=== PATIENT | female | born 1985 | race Hispanic/Latino ===

== ENCOUNTER 2024-05-08 06:15 | Emergency (ER) | payer OTHER ==
[~2024-05-08] VITALS: Ht 162.6 cm; Wt 108.9 kg
[~2024-05-08 06:15] MED LIST: IBUPROFEN600 MG PO
[2024-05-08] MEDS: ASPIRIN 325 MG TAB PO ONE (06:57)
[2024-05-08] MEDS: KETOROLAC TROMETHAMINE 30 MG/ML VIAL IV STA (08:04)
[2024-05-08] MEDS: ACETAMINOPHEN 325 MG TAB PO ONE (09:30)
[2024-05-08] MEDS ORDERED: IOPAMIDOL 370 MG/ML 100 ML INFUS..BTL INJ ONE (10:10)
[2024-05-08] MEDS: Morphine 4mg INJECTION 4 MG/ML INJ IV ONE (10:27)
[2024-05-08] MEDS: HALOPERIDOL LACTATE 5 MG/ML VIAL IV ONE (10:52)
[2024-05-08] MEDS ORDERED: DIPHENHYDRAMINE HCL INJ 50 MG/ML VIAL ONE (10:56)
[2024-05-08] MEDS: DIPHENHYDRAMINE HCL INJ 50 MG/ML VIAL IV ONE (11:04)
[2024-05-08 12:33] VITALS: PULSE 57; RESP 16; TEMP 98.2; O2SAT 98
== END 2024-05-08 12:33 | disposition home or self-care (01) ==
LOC: FSED 06:18
DX: R07.9 Chest pain, unspecified (principal); M25.512 Pain in left shoulder; R20.2 Paresthesia of skin; R20.0 Anesthesia of skin; F41.9 Anxiety disorder, unspecified; Z98.84 Bariatric surgery status
CPT/HCPCS: 71046; 71260; 80053; 80076; 80307; 81003; 83880; 84484; 85025; 85379; 93005; 96374; 96375; 99284; J1200; J1630; J1885; J2270; Q9967

== ENCOUNTER 2024-07-02 20:12 | Emergency (ER) | payer OTHER | END 2024-07-02 21:00 | disposition left against medical advice (07) | LOC: ER 20:17 | DX: R10.9 Unspecified abdominal pain (principal) ==

== ENCOUNTER 2024-09-05 09:51 | Emergency (ER) | payer OTHER ==
[~2024-09-05] VITALS: Ht 162.6 cm; Wt 95.3 kg
[2024-09-05 10:43] VITALS: PULSE 69; RESP 18; TEMP 99; O2SAT 100
[2024-09-05 12:11] LABS: CORONAVIRUS COVID-19 AG NEGATIVE (NEGATIVE); STREPTOCOCCUS GRP A ANTIGEN NEGATIVE (NEGATIVE)
== END 2024-09-05 14:09 | disposition home or self-care (01) ==
LOC: ER 10:45
DX: R05.9 Cough, unspecified (principal); B34.9 Viral infection, unspecified; R09.89 Other specified symptoms and signs involving the circulatory and respiratory systems; Z11.52 Encounter for screening for COVID-19
CPT/HCPCS: 83518; 87070; 99282